=== PATIENT | male | born 1945 | race Caucasian/White ===

== ENCOUNTER 2017-04-24 23:54 | Emergency (ER) | payer BC ==
--- NOTE | ~2017-04-24 | CT4 ---
[facility] A Service of [facility] & [facility] RADIOLOGY TEXT RESULTS PATIENT: STACY SUNG LOCATION: [facility] : 41 UNIT #: [id number] AGE: [address]: Aleksey Suggs MD SEX: M ORDER DR: [id number] [facility] [address] [place], [place] [address] [id number] MR#: [id number] Acc #: [id number] NAME: STACY SUNG : 1945 SEX: M STUDY DATE/TIME: 04/25/2017 3:23 UNIT: [facility] ROOM: STUDY DESCRIPTION: CT Abd and Pelv Wo Cont Attending Physician: Aleksey Suggs M.D. Ordering Physician: Aleksey Suggs M.D. Primary Care Physician: Eduin Carrizales M.D. MEDICAL IMAGING REPORT This report is preliminary unless electronic signature is present EXAM CT abdomen and pelvis without contrast INDICATION Pain left side. Patient had kidney stone treatment 3 days ago and is now hurting again. COMPARISON 04/11/2017. TECHNIQUE Axial 3 mm images were obtained through the abdomen and pelvis without IV or oral contrast. This CT examination was performed with one or more of the following radiation dose reduction techniques: automatic exposure control, adjustment of mA and/or kV according to patient size, and iterative reconstruction. FINDINGS The lung bases are clear. The liver contains multiple small low-density areas measuring less than 1 cm in diameter consistent with cysts. There is an older CT scan from 03/01/2013 which showed these abnormalities and they are stable. The gallbladder, spleen, pancreas and adrenal glands are normal. The right kidney is normal. The left kidney shows mild hydronephrosis and there is perinephric stranding. There is a 4 cm left renal cyst. There are small stone fragments in the calyces measuring up to 3 mm in diameter. There is a mid ureteral stone measuring 3.4 mm in diameter. The bladder and prostate gland are normal. The aorta is normal in size and there is no adenopathy. The bones are unremarkable. IMPRESSION 1. 3.5 mm mid left ureteral stone causing moderate hydronephrosis. There are stone fragments in the calyces as well. [facility]. [facility] A Service of [facility] & [facility] RADIOLOGY TEXT RESULTS PATIENT: STACY SUNG LOCATION: [facility] : 41 UNIT #: [id number] AGE: [address]: Aleksey Suggs MD SEX: M ORDER DR: 2. Otherwise, the study is negative. Dictated by... Cristino Best M.D. THIS IS AN ELECTRONICALLY VERIFIED REPORT Cristino Best M.D. at 04/25/2017 1:31 PM BRANDAN/hany TD: 04/25/2017 10:36 JOB #: [id number] MEDICAL IMAGING REPORT Page 1 of 1 COPY
[~2017-04-24 23:54] MED LIST: ASPIRIN PO; ASPIRIN81 M2 PO; METFORMIN PO; MULTI-DAY1 TAB PO; ZOCOR PO
[2017-04-25 01:37] LABS: URINE SOURCE CLEAN CATCH
[2017-04-25 01:40] LABS: URINE APPEARANCE CLEAR; URINE BILIRUBIN NEG (NEG); URINE BLOOD 2+ (NEG); URINE COLOR YELLOW; URINE GLUCOSE NEG (NEG); URINE KETONE NEG (NEG); URINE LEUKOCYTE ESTERASE NEG (NEG); URINE NITRATE NEG (NEG); URINE PROTEIN NEG (NEG); URINE SPECIFIC GRAVITY 1.021 (1.003-1.035); URINE UROBILINOGEN 0.2 MG/DL (NEG)
[2017-04-25 01:44] LABS: URINE BACTERIA AUWI NEG (NEGATIVE); URINE SQUAMOUS EPITHELIAL CELL NONE SEEN /[HPF]
[2017-04-25 01:45] LABS: CULTURE INDICATED? NO
[2017-04-25 02:02] LABS: BASOPHIL% 0.3 % (0-2.5); EOSINOPHIL% 0.1 % (0.0-7.0); HEMATOCRIT 43.3 % (38.0-50.0); LYMPHOCYTE# 1.2 X10e3 (1.0-3.5); MEAN CELL VOLUME 92.4 FL (83-96); MEAN CORPUSCULAR HEMOGLOBIN 29.8 PG (28-34); MEAN CORPUSCULAR HGB CONC 32.3 g/dL (30-36); MEAN PLATELET VOLUME 9.3 FL (6.5-11.5); MONOCYTE% 7.4 % (3.0-12.0); NEUTROPHIL# 11.3 X10e3 (1.5-7.1); NEUTROPHIL% 83.2 % (40-75); PLATELET COUNT 211 X10e3 (140-420); RED BLOOD COUNT 4.68 X10e (3.90-5.60); RED CELL DISTRIBUTION WIDTH 13.7 % (11.0-15.5); WHITE BLOOD COUNT 13.6 X10e3 (4.0-10.5)
[2017-04-25 02:06] LABS: DIFF IND NO
[2017-04-25 02:26] LABS: ALBUMIN SERUM 4.4 g/dL (3.5-5.0); BILIRUBIN,TOTAL 0.8 mg/dL (0.2-2.0); BUN/CREATININE RATIO 12.14; CREATININE SERUM 1.4 mg/dL (0.6-1.4); GLOM FILT RATE Estimated 49.5 mL/min (>60); POTASSIUM 4.2 mmol/L (3.5-5.1); PROTEIN TOTAL SERUM 7.2 g/dL (6.0-8.3)
== END 2017-04-25 04:27 | disposition home or self-care (01) ==
LOC: CED 23:54
PROVIDERS: Emergency Medicine
DX: N13.2 Hydronephrosis with renal and ureteral calculous obstruction (principal); Z98.890 Other specified postprocedural states; Z79.899 Other long term (current) drug therapy
CPT/HCPCS: 36415; 74176; 80053; 81003; 85025; 96374; 96375; 96376; 99284; J1170; J2270; J2405